=== PATIENT | female | born 1965 | race Caucasian/White ===

== ENCOUNTER 2018-01-19 16:51 | Emergency (ER) | payer SELFPAY ==
[~2018-01-19] VITALS: Ht 157.5 cm; Wt 62.0 kg
[~2018-01-19 16:51] MED LIST: BACT800T5 PO; CEPH500C3 PO; IBUP600T26 PO
[2018-01-19 17:03] VITALS: BP 173/96; PULSE 77; RESP 22; TEMP 98.5; O2SAT 97
--- NOTE | 2018-01-19 17:13 | PD ---
HPI Chief Complaint: Cold / Flu Symptoms Time Seen by Provider: 17:08 Travel History International Travel<30 days: No Contact w/Intl Traveler<30days: No Traveled to known affect area: No History of Present Illness HPI 52-year-old female presents emergency department for evaluation of a nonproductive cough 3 weeks. Patient states she went to her primary care provider about 2 weeks ago and they told her it was likely allergies. She states it has persisted. Patient is prescribed lisinopril but states she does not take this regularly. Denies any pain. States that she cannot work or sleep without coughing. She has had no fever or chills. She denies any other symptoms at this time. 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 Reported Meds & Prescriptions Reported Meds & Active Scripts Active Proair Hfa 8.5 GM Inh (Albuterol Sulfate) 90 Mcg/Act Aer 2 Puff INH Q4HR PRN 108 mcg/actuation Tessalon Perles (Benzonatate) 100 Mg Cap 200 Mg PO TID PRN Ibuprofen 600 Mg Tab 600 Mg PO Q8HR PRN Keflex (Cephalexin Monohydrate) 500 Mg Cap 500 Mg PO QID 5 Days Bactrim DS (Sulfamethoxazole-Trimethoprim DS) 1 Tab Tab 1 Tab PO BID 10 Days Review of Systems Except as stated in HPI: all other systems reviewed are Neg Physical Exam Narrative GENERAL: Well-nourished female patient, no acute distress SKIN: Focused skin assessment warm/dry. HEAD: Atraumatic. Normocephalic. EYES: Pupils equal and round. No scleral icterus. No injection or drainage. ENT: No nasal bleeding or discharge. Mucous membranes pink and moist. NECK: Trachea midline. No JVD. CARDIOVASCULAR: Regular rate and rhythm. No murmur appreciated. RESPIRATORY: No accessory muscle use. Clear to auscultation. Breath sounds equal bilaterally. GASTROINTESTINAL: Abdomen soft, non-tender, nondistended. Hepatic and splenic margins not palpable. MUSCULOSKELETAL: No obvious deformities. No clubbing. No cyanosis. No edema. NEUROLOGICAL: Awake and alert. No obvious cranial nerve deficits. Motor grossly within normal limits. Normal speech. PSYCHIATRIC: Appropriate mood and affect; insight and judgment normal. Data Data Last Documented VS Vital Signs Date Time Temp Pulse Resp B/P (MAP) Pulse Ox O2 Delivery O2 Flow Rate FiO2 01/19/18 17:03 98.5 77 22 173/96 (121) 97 Orders Orders Chest, Pa & Lat (01/19/18 ) Ed Discharge Order (01/19/18 17:53) [facility] Medical Decision Making Medical Screen Exam Complete: Yes Emergency Medical Condition: Yes Medical Record Reviewed: Yes Differential Diagnosis Cough versus bronchospasm versus foreign body versus cough secondary to LONI inhibitor versus pneumonia Narrative Course 52-year-old female presents emergency department for evaluation of a cough 3 weeks. Patient appears without distress. Her lung sounds are clear. Chest x- rays without acute cardia pulmonary disease. Patient will be given antitussives. She is encouraged follow-up with her primary care provider and return immediately with acute worsening symptoms. Diagnosis Primary Impression: Cough Referrals: Primary Care Physician Patient Instructions: Acute Cough (ED), General Instructions Departure Forms: Tests/Procedures, Work Release Enter return to work date: January 23, 2018 Additional Instructions: Humidified air may help to alleviate symptoms Follow-up with your primary care provider Return immediately with acute worsening symptoms Med/Other Pt SpecificInfo: Prescription(s) given Scripts Albuterol 8.5 GM Inh (Proair Hfa 8.5 GM Inh) 90 Mcg/Act Aer 2 PUFF INH Q4HR Y for SHORTNESS OF BREATH, #1 INHALER 0 Refills 108 mcg/actuation Prov: Hilda Bishop 01/19/18 Benzonatate (Tessalon Perles) 100 Mg Cap 200 MG PO TID Y for COUGH, #30 CAP 0 Refills Prov: Hilda Bishop 01/19/18 Disposition: 01 DISCHARGE HOME Condition: Stable Hilda Bishop January 19, 2018 17:13
--- NOTE | 2018-01-19 17:50 | RADRPT ---
EXAM DATE/TIME: 01/19/2018 17:30 [place] COMPARISON: No previous studies available for comparison. INDICATIONS : Cough. MEDICAL HISTORY : Hypertension. SURGICAL HISTORY : None. ENCOUNTER: Initial ACUITY: 3 weeks PAIN SCORE: 0/10 LOCATION: Bilateral chest FINDINGS: PA and lateral views of the chest demonstrate the lungs to be symmetrically aerated without evidence of mass, infiltrate or effusion. The cardiomediastinal contours are unremarkable. Osseous structure s are intact. CONCLUSION: 1. No acute findings. Tortuous aorta. Bryant Lama MD on January 19, 2018 at 17:47 Board Certified Radiologist. This report was verified electronically.
[2018-01-19] MEDS ORDERED: ALBUAER3 INH (17:55)
[2018-01-19] MEDS ORDERED: BENZ100 PO (17:55)
== END 2018-01-19 18:06 | disposition home or self-care (01) ==
LOC: NEPK 16:51
DX: R05 Cough (principal); E78.00 Pure hypercholesterolemia, unspecified; I10 Essential (primary) hypertension
CPT/HCPCS: 71046; 99283